=== PATIENT | female | born 1970 | race African-American/Black ===

== ENCOUNTER 2019-09-29 05:21 | Emergency (ER) | payer MEDICAID ==
[~2019-09-29] VITALS: Ht 162.6 cm; Wt 72.6 kg
[2019-09-29 05:28] VITALS: BP_SYST 108
--- NOTE | 2019-09-29 05:34 | NUR ---
Pt placed to ER bed 08. Report given to MANISHA Brush. Specimen for influenza collected and sent to lab.
--- NOTE | 2019-09-29 05:38 | NUR ---
Pt walked into ED C/O cough x 1 week worsening over the past few days. Pt denies any fever, chills, N/V, SOB or any other symptoms at this time. Will continue to monitor.
--- NOTE | 2019-09-29 05:39 | NUR ---
ER Dr. Holloway at bedside examining patient.
[2019-09-29 06:06] VITALS: BP_SYST 108
--- NOTE | 2019-09-29 06:08 | NUR ---
Patient given written and verbal discharge instructions and verbalizes understanding. ER MD discussed with patient the results and treatment provided. Patient in stable condition. ID arm band removed. Rx of Promethazine Hydrochloride and Azithromycin given. Patient educated on pain management and to follow up with PMD. Pain Scale 0. Opportunity for questions provided and answered. Medication side effect fact sheet provided.
== END 2019-09-29 06:06 | disposition home or self-care (01) ==
LOC: SED 05:21
DX: A37.90 Whooping cough, unspecified species without pneumonia (principal)
CPT/HCPCS: 36415; 86710; 99283